=== PATIENT | female | born 1995 | race Two or more races ===

== ENCOUNTER 2018-04-18 18:05 | Emergency (ER) | payer OTHER ==
[~2018-04-18] VITALS: Ht 157.5 cm; Wt 54.4 kg
[2018-04-18 18:50] VITALS: BP 113/69
== END 2018-04-18 23:12 | disposition home or self-care (01) ==
LOC: ER 18:08
DX: N64.4 Mastodynia (principal); N63.0 Unspecified lump in unspecified breast